=== PATIENT | male | born 1955 | race Native Hawaiian/Other Pacific Islander ===

== ENCOUNTER 2023-02-21 15:26 | Outpatient (CLI) | payer OTHER ==
[2023-02-21 16:09] LABS: PLATELET COUNT 108 K/uL (142-355)
[2023-02-21 16:31] LABS: POTASSIUM 4.4 mmol/L (3.6-5.2)
== END 2023-02-21 20:25 | disposition home or self-care (01) ==
LOC: LAB 15:26
PROVIDERS: ATTEND Internal Medicine
DX: I10 Essential (primary) hypertension (principal); E29.1 Testicular hypofunction
CPT/HCPCS: 80053; 80061; 84402; 84403; 84439; 84443; 85027

== ENCOUNTER 2023-03-27 11:26 | Outpatient (CLI) | payer OTHER | END 2023-03-27 19:52 | disposition home or self-care (01) | LOC: CT 11:26 | PROVIDERS: ATTEND Internal Medicine | DX: R31.9 Hematuria, unspecified (principal) ==